=== PATIENT | female | born 1990 | race Caucasian/White ===

== ENCOUNTER 2016-05-13 15:51 | Emergency (ER) | payer BC ==
[~2016-05-13] VITALS: Ht 175.3 cm; Wt 81.4 kg
[2016-05-13 15:56] VITALS: TEMP 36.8; Ht 175.3 cm; Wt 81.4 kg
[2016-05-13] MEDS ORDERED: PRENTAB26 PO (17:14)
[2016-05-13 17:18] LABS: URINE APPEARANCE CLEAR (CLEAR); URINE BILIRUBIN NEG (NEG); URINE COLOR YELLOW; URINE EPITHELIAL CELL AUTO 0-5 /lpf (0-5); URINE NITRITE NEG (NEG); UROBILINOGEN NEG (NEG)
[2016-05-13 17:19] LABS: MANUAL MICROSCOPIC REQUIRED? NO; REVIEW REQ? NO
[2016-05-13 17:21] LABS: BASO % 0.4 %; BASO ABS # 0.03 K/uL (0-0.2); COMPLETE YES; EOS % 1.7 %; HEMATOCRIT 41.2 % (37-47); IG% 0.1 %; LYMPH % 36.7 %; LYMPH ABS # 2.78 K/uL (1.2-3.4); MEAN CELL VOLUME 89.4 fL (80-100); MEAN CORPUSCULAR HEMOGLOBIN 30.2 pg (25-34); MEAN CORPUSCULAR HGB CONC 33.7 g/dl (32-36); MEAN PLATELET VOLUME 9.8 fL (7.4-10.4); MONO % 6.1 %; PLATELET COUNT 298 K/uL (130-400); RED BLOOD COUNT 4.61 M/uL (4.2-5.4); WHITE BLOOD COUNT 7.57 K/uL (4.8-10.8)
--- NOTE | 2016-05-13 17:22 | DIAGNOSTIC IMAGING REPORT ---
Limited ultrasound <14 WKS SINGLE CLINICAL HISTORY: bleeding crampy TECHNIQUE: Ultrasound COMPARISON STUDY: None FINDINGS: Midline uterus with a greatest dimension of 8 cm. No evidence for an intrauterine gestational sac. Mild endometrial prominence at 7 mm. Right ovary measures 3 cm maximum dimension containing a 1.1 cm cyst. Left ovary measures 3.6 cm. Vascular flow is confirmed to both ovaries. IMPRESSION: No evidence for an intrauterine gestational sac. Small right ovarian cyst. Electronically signed by: Miky Menezes M.D. 05/13/2016 5:20 PM Dictated Date/Time: 05/13/2016 5:19 PM
[2016-05-13 17:29] LABS: PARTIAL THROMBOPLASTIN RATIO 1.1; PROTHROMBIN TIME (PATIENT) 10.4 SECONDS (9.0-12.0)
[2016-05-13 17:42] LABS: BUN/CREATININE RATIO 15.3 (10-20); CALCIUM 8.9 mg/dl (8.5-10.1); CREATININE 0.74 mg/dl (0.60-1.20); POTASSIUM 3.7 mmol/L (3.5-5.1)
[2016-05-13 17:45] LABS: ALB/GLOB RATIO 1.2 (0.9-2)
[2016-05-13 18:17] VITALS: BP 101/77; PULSE 65; O2SAT 100
--- NOTE | 2016-05-13 18:26 | EMERGENCY ROOM VISIT NOTE ---
History Report prepared by Silvia: Rosie Marlow Under the Supervision of: Dr. Jax Fan D.O. First contact with patient: 16:00 Chief Complaint: ED VAG BLEEDING Stated Complaint: 2 POSITIVE PREG TEST, CRAMPING BLEEDING NOW NEG History of Present Illness The patient is a 26 year old female who presents to the Emergency Room with complaints of constant vaginal bleeding that started this morning. The patient is also experiencing lower abdominal cramping. The patient states that her last normal menstrual period was on April 13. She took two tests prior to today and both of them were positive. However, she took another urine test today after the vaginal bleeding and abdominal cramping started and it was negative. The patient went to the [facility] walk-in clinic and they recommended that she come into the ED for further evaluation and an ultrasound. They did not do anything for her there, they did not even do a test. This would be the patient's first . The patient experienced nausea over the past two days, but she is not experiencing any today. She denies shortness of breath, back pain, vomiting, and lower extremity edema. The patient denies any significant medical problems and states that the only surgery she has experienced is a wisdom teeth extraction. Source of History: patient Onset: this morning Position: other (vagina) Quality: other (vaginal bleeding) Timing: constant Associated Symptoms: + abdominal pain (cramping), + nausea, No SOB, No back pain, No vomiting Note: no lower extremity edema Review of Systems See HPI for pertinent positives & negatives. A total of 10 systems reviewed and were otherwise negative. Past Medical & Surgical Surgical Problems: (1) History of wisdom tooth extraction Social History Smoking Status: Never Smoker Marital Status: Housing Status: lives with family Occupation Status: employed Current/Historical Medications Scheduled Multivit/Min/Iron/Fol Ac/Pren ( Vitamin), 1 TAB PO DAILY Allergies Coded Allergies: No Known Allergies (Unverified , 05/13/16) Physical Exam Vital Signs Date Time Temp Pulse Resp B/P Pulse Ox O2 Delivery O2 Flow Rate FiO2 05/13/16 18:17 65 16 101/77 100 05/13/16 17:23 65 16 115/73 100 Room Air 05/13/16 15:56 36.8 71 18 137/69 100 Room Air Physical Exam GENERAL: Patient is awake, alert, and in no acute distress. Patient is resting comfortably and showing no signs of anxiety EYES: The conjunctivae are clear. The pupils are round and reactive. EARS, NOSE, MOUTH AND THROAT: The nose is without any evidence of any deformity. Mucous membranes are moist tongue is midline NECK: The neck is nontender and supple. RESPIRATORY: Normal respiratory effort is noted there is no evidence of wheezing rhonchi or rales CARDIOVASCULAR: Regular rate and rhythm noted there no murmurs rubs or gallops normal S1 normal S2 GASTROINTESTINAL: The abdomen is soft. Bowel sounds are present in all quadrants. Abdomen is nontender MUSCULOSKELETAL/EXTREMITIES: There is no evidence of gross deformity full range of motion is noted in the hips and shoulders SKIN: There is no obvious evidence of any rash. There are no petechiae, pallor or cyanosis noted. NEUROLOGIC: Patient is awake alert and oriented x3 strength is symmetric patellar reflexes are 2+ bilaterally Medical Decision & Procedures ER Provider Diagnostic Interpretation: US results as stated below per my review and radiologist interpretation. Limited ultrasound <14 WKS SINGLE IMPRESSION: No evidence for an intrauterine gestational sac. Small right ovarian cyst. Electronically signed by: Miky Menezes M.D. 05/13/2016 5:20 PM Dictated Date/Time: 05/13/2016 5:19 PM Laboratory Results 05/13/16 17:10 Red Blood Count 4.61, Mean Corpuscular Volume 89.4, Mean Corpuscular Hemoglobin 30.2, Mean Corpuscular Hemoglobin Concent 33.7, Mean Platelet Volume 9.8, Neutrophils (%) (Auto) 55.0, Lymphocytes (%) (Auto) 36.7, Monocytes (%) (Auto) 6.1, Eosinophils (%) (Auto) 1.7, Basophils (%) (Auto) 0.4, Neutrophils # (Auto) 4.16, Lymphocytes # (Auto) 2.78, Monocytes # (Auto) 0.46, Eosinophils # (Auto) 0.13, Basophils # (Auto) 0.03 05/13/16 17:10 Test 05/13/16 17:03 05/13/16 17:10 Urine Color YELLOW Urine Appearance CLEAR (CLEAR) Urine pH 6.0 (4.5-7.5) Urine Specific [place] 1.010 (1.000-1.030) Urine Protein NEG (NEG) Urine Glucose (UA) NEG (NEG) Urine Ketones NEG (NEG) Urine Occult Blood TRACE (NEG) Urine Nitrite NEG (NEG) Urine Bilirubin NEG (NEG) Urine Urobilinogen NEG (NEG) Urine Leukocyte Esterase NEG (NEG) Urine WBC (Auto) 0 /hpf (0-5) Urine RBC (Auto) 0-4 /hpf (0-4) Urine Hyaline Casts (Auto) 0 /lpf (0-5) Urine Epithelial Cells (Auto) 0-5 /lpf (0-5) Urine Bacteria (Auto) NEG (NEG) White Blood Count 7.57 K/uL (4.8-10.8) Red Blood Count 4.61 M/uL (4.2-5.4) Hemoglobin 13.9 g/dL (12.0-16.0) Hematocrit 41.2 % (37-47) Mean Corpuscular Volume 89.4 fL (80-100) Mean Corpuscular Hemoglobin 30.2 pg (25-34) Mean Corpuscular Hemoglobin Concent 33.7 g/dl (32-36) Platelet Count 298 K/uL (130-400) Mean Platelet Volume 9.8 fL (7.4-10.4) Neutrophils (%) (Auto) 55.0 % Lymphocytes (%) (Auto) 36.7 % Monocytes (%) (Auto) 6.1 % Eosinophils (%) (Auto) 1.7 % Basophils (%) (Auto) 0.4 % Neutrophils # (Auto) 4.16 K/uL (1.4-6.5) Lymphocytes # (Auto) 2.78 K/uL (1.2-3.4) Monocytes # (Auto) 0.46 K/uL (0.11-0.59) Eosinophils # (Auto) 0.13 K/uL (0-0.5) Basophils # (Auto) 0.03 K/uL (0-0.2) RDW Standard Deviation 41.4 fL (36.4-46.3) RDW Coefficient of Variation 12.7 % (11.5-14.5) Immature Granulocyte % (Auto) 0.1 % Immature Granulocyte # (Auto) 0.01 K/uL (0.00-0.02) Prothrombin Time 10.4 SECONDS (9.0-12.0) Prothromb Time International Ratio 1.0 (0.9-1.1) Activated Partial Thromboplast Time 28.9 SECONDS (21.0-31.0) Partial Thromboplastin Ratio 1.1 Anion Gap 9.0 mmol/L (3-11) Est Creatinine Clear Calc Drug Dose 129.2 ml/min Estimated GFR () 127.8 Estimated GFR (Non- 110.3 BUN/Creatinine Ratio 15.3 (10-20) Calcium Level 8.9 mg/dl (8.5-10.1) Total Bilirubin 0.3 mg/dl (0.2-1) Aspartate Amino Transf (AST/SGOT) 12 U/L (15-37) Alanine Aminotransferase (ALT/SGPT) 17 U/L (12-78) Alkaline Phosphatase 55 U/L (45-117) Total Protein 7.6 gm/dl (6.4-8.2) Albumin 4.1 gm/dl (3.4-5.0) Globulin 3.5 gm/dl (2.5-4.0) Albumin/Globulin Ratio 1.2 (0.9-2) Human Chorionic Gonadotropin, Quant 3 mIU/mL Laboratory results per my review. Procedure Bedside ultrasound obtained in the ED revealed endometrial striped widened but no definite products of conception were noted. ED Course 1602: The patient was evaluated in room A9. A complete history and physical examination were performed. 1606: I performed a bedside ultrasound at this time. Refer to the procedure note above for further details. 1755: Upon reevaluation, the patient is doing well. She told me that the vaginal bleeding is essentially gone now. I discussed the results and treatment plan with her. She verbalized agreement of the treatment plan. She was discharged home. Medical Decision Prior records/ancillary studies reviewed. Triage Nursing notes reviewed. The patient's history was concerning for vaginal bleeding and abdominal pain. Differential diagnosis: Etiologies such as ectopic , dysfunction uterine bleeding, bleeding dyscrasia, trauma, infection, as well as others were entertained. The patient is a 26-year-old female who presented to emergency department for an evaluation of vaginal bleeding. The patient a pelvic cramping. She took a test last week which was positive. She took a test today that was negative. She will see her primary care physician and was sent to the emergency department for possible ectopic . The patient's physical exam was not consistent with an acute surgical abdomen. Her beta hCG quantitative was very low and I feel it is probably coming down from a missed AB. I discussed patient's laboratory and radiographic studies with her. She was encouraged to rest and avoid any strenuous activity. She was also encouraged to continue all medications as prescribed. She was also encouraged to call her primary care physician to schedule a follow-up appointment or return to emergency apartment immediately if symptoms change worsen or the need arises. The patient does have a follow-up appointment with her primary DIRECTOR OF STRATEGY & MOBILE physician upcoming. She was encouraged to have a repeat beta hCG quantitative done at that time. Impression Primary Impression: Vaginal bleeding Additional Impression: Missed Scribe Attestation The scribe's documentation has been prepared under my direction and personally reviewed by me in its entirety. I confirm that the note above accurately reflects all work, treatment, procedures, and medical decision making performed by me. Departure Information Dispostion Home / Self-Care Forms HOME CARE DOCUMENTATION FORM, IMPORTANT VISIT INFORMATION, WORK / SCHOOL INSTRUCTIONS Patient Instructions ED Miscarriage Poss, [facility] Additional Instructions Follow-up with your DIRECTOR OF STRATEGY & MOBILE physician this week as scheduled. I would recommend a repeat beta hCG quantitative to be sure that the number comes down to 0. Rest and avoid any strenuous activity. Return to the emergency department immediately if symptoms change worsen or the need arises. Follow-up with a local DIRECTOR OF STRATEGY & MOBILE physician as soon as possible. Problem Qualifiers
== END 2016-05-13 18:18 | disposition home or self-care (01) ==
LOC: C.EDB 15:54 → C.EDA 18:18
DX: O02.1 Missed abortion (principal)

== ENCOUNTER → 2016-07-31 | Outpatient (CLI) | payer BC ==
[~2016-07-31] MED LIST: PRENTAB26 PO
== END | disposition home or self-care (01) ==
LOC: C.LAB1850 16:26
PROVIDERS: ATTEND Obstetrics & Gynecology
DX: O09.299 Supervision of pregnancy with other poor reproductive or obstetric history, unspecified trimester (principal)

== ENCOUNTER → 2016-08-28 | Outpatient (CLI) | payer BC, OTHER ==
[2016-08-28 13:20] LABS: BASO % 0.3 %; BASO ABS # 0.02 K/uL (0-0.2); COMPLETE YES; EOS % 0.8 %; HEMATOCRIT 41.3 % (37-47); IG% 0.1 %; LYMPH % 29.3 %; LYMPH ABS # 2.28 K/uL (1.2-3.4); MEAN CELL VOLUME 90.4 fL (80-100); MEAN CORPUSCULAR HEMOGLOBIN 30.2 pg (25-34); MEAN CORPUSCULAR HGB CONC 33.4 g/dl (32-36); MEAN PLATELET VOLUME 9.9 fL (7.4-10.4); MONO % 5.9 %; NEUT % 63.6 %; PLATELET COUNT 298 K/uL (130-400); RED BLOOD COUNT 4.57 M/uL (4.2-5.4); WHITE BLOOD COUNT 7.78 K/uL (4.8-10.8)
[2016-08-28 15:09] LABS: URINE APPEARANCE CLEAR (CLEAR); URINE BILIRUBIN NEG (NEG); URINE COLOR YELLOW; URINE NITRITE NEG (NEG); UROBILINOGEN NEG (NEG)
[2016-08-28 15:16] LABS: MANUAL MICROSCOPIC REQUIRED? NO; REVIEW REQ? NO
[2016-08-30 15:57] LABS: QUANTIF TB AG-NIL 0.02 IU/ML; QUANTIFERON NIL 0.03 IU/ML
[2016-08-31 03:10] LABS: CHLAMYDIA TRACH RNA*** NOT DETECTED (NOT DETECTED); GC (NEIS GONORRHOEAE)RNA** NOT DETECTED (NOT DETECTED)
== END | disposition home or self-care (01) ==
LOC: C.LAB1850 12:07
PROVIDERS: ATTEND Obstetrics & Gynecology
DX: O09.299 Supervision of pregnancy with other poor reproductive or obstetric history, unspecified trimester (principal); Z20.9 Contact with and (suspected) exposure to unspecified communicable disease

== ENCOUNTER → 2016-10-24 | Outpatient (CLI) | payer BC ==
[2016-10-24 15:16] LABS: GTGD 50 Grams
[2016-10-26 14:09] LABS: AFP CONCENTRATION 50.4 NG/ML; AFP MULTIPLE OF MEDIAN 1.84; AFPTS GESTATIONAL AGE 15.7 WEEKS; AFPTS INSULIN DEP DIABETIC? NO; AFPTS MATERNAL WT 183 LBS; ALPHA-FETOPROTEIN RACE CAUCASIAN=W; HISTORY OF NTD NO; REPEAT SAMPLE? NO
== END | disposition home or self-care (01) ==
LOC: C.LAB1850 13:51
PROVIDERS: ATTEND Obstetrics & Gynecology
DX: Z34.92 Encounter for supervision of normal pregnancy, unspecified, second trimester (principal)

== ENCOUNTER → 2017-01-16 | Outpatient (CLI) | payer BC ==
[2017-01-16 16:13] LABS: URINE APPEARANCE CLEAR (CLEAR); URINE BILIRUBIN NEG (NEG); URINE COLOR YELLOW; URINE NITRITE NEG (NEG); URINE SPECIFIC GRAVITY 1.019 (1.000-1.030); UROBILINOGEN NEG (NEG)
[2017-01-16 16:24] LABS: MANUAL MICROSCOPIC REQUIRED? NO; REVIEW REQ? NO
[2017-01-16 16:38] LABS: HEMATOCRIT 36.8 % (37-47)
[2017-01-16 19:05] LABS: GTGD 50 Grams
== END | disposition home or self-care (01) ==
LOC: C.LAB1850 14:51
PROVIDERS: ATTEND Obstetrics & Gynecology
DX: Z34.93 Encounter for supervision of normal pregnancy, unspecified, third trimester (principal)

== ENCOUNTER → 2017-03-19 | Outpatient (CLI) | payer BC | END | disposition home or self-care (01) | LOC: C.LABSPEC 17:33 | PROVIDERS: ATTEND Obstetrics & Gynecology | DX: Z34.03 Encounter for supervision of normal first pregnancy, third trimester (principal) ==

== ENCOUNTER 2017-04-15 10:48 | Inpatient (IN) | payer BC ==
[~2017-04-15] VITALS: Ht 175.3 cm; Wt 100.0 kg
[2017-04-15] MEDS ORDERED: LACTATED RINGER'S 1000ML 500 ML IV PRN ×2 (11:32→13:10)
[2017-04-15] MEDS ORDERED: LACTATED RINGER'S 1000ML 1,000 ML IV PRN (11:32)
[2017-04-15] MEDS: LACTATED RINGER'S 1000ML 1,000 ML IV SCH ×3 (11:42→17:35)
[2017-04-15] MEDS ORDERED: OXYTOCIN 30 UNITS/500ML NSS IV PRN ×2 (11:45→20:15)
[2017-04-15] MEDS ORDERED: BUPIVACAINE 0.25% 30 ML VIAL ONE (11:48)
[2017-04-15] MEDS ORDERED: EpHEDrine SULFATE INJ 50 MG/ML AMP ONE (11:48)
[2017-04-15] MEDS ORDERED: FENTANYL CITRATE INJ 50 MCG/1 ML 2 ML VIAL ONE (11:48)
[2017-04-15] MEDS ORDERED: FENTANYL 2MCG/ML ROPIV 1.25MG/ML 100ML BAG EPI ONE (11:49)
[2017-04-15 12:08] LABS: HEMATOCRIT 38.9 % (37-47); MEAN CELL VOLUME 89.2 fL (80-100); MEAN CORPUSCULAR HEMOGLOBIN 29.8 pg (25-34); MEAN CORPUSCULAR HGB CONC 33.4 g/dl (32-36); MEAN PLATELET VOLUME 10.7 fL (7.4-10.4); PLATELET COUNT 221 K/uL (130-400); RED CELL DISTRIBUTION WIDTH CV 13.3 % (11.5-14.5); RED CELL DISTRIBUTION WIDTH SD 43.2 fL (36.4-46.3); WHITE BLOOD COUNT 14.31 K/uL (4.8-10.8)
[2017-04-15] MEDS ORDERED: NALOXONE HCL INJ 1 MG in SODIUM CHLORIDE 0.9% 1000ML 1,000 ML IV PRN (13:10)
[2017-04-15] MEDS ORDERED: ONDANSETRON INJ 2 MG/ML 2 ML VIAL IV PRN (13:15)
[2017-04-15] MEDS ORDERED: NALBUPHINE HCL INJ 10 MG/ML AMP IV PRN (13:15)
[2017-04-15] MEDS ORDERED: NALOXONE HCL INJ 0.4 MG/1 ML VIAL/CARP IV PRN (13:15)
[2017-04-15] MEDS ORDERED: EpHEDrine SULFATE INJ 50 MG/ML AMP IV PRN (13:15)
[2017-04-15] MEDS ORDERED: FENTANYL 2MCG/ML ROPIV 1.25MG/ML 100ML BAG EPI PRN (13:15)
[2017-04-15] MEDS ORDERED: DiphenhydrAMINE HCL 50 MG/ML VIAL IV PRN (13:15)
[2017-04-15 14:09] VITALS: Ht 175.3 cm; Wt 100.0 kg
[2017-04-15] MEDS ORDERED: HYDROCORTISONE ACETATE 25 MG SUPP PR PRN (20:15)
[2017-04-15] MEDS ORDERED: SUPERCREAM 0.870 % 15GM JAR EXT PRN (20:15)
[2017-04-15] MEDS ORDERED: DIPHTHERIA/TETANUS/PERTUSSIS 0.5 ML SYR/VIAL IM. ONE (20:15)
[2017-04-15] MEDS ORDERED: OXYCODONE/ACETAMINOPHEN 5-325 TAB PO PRN (20:15)
[2017-04-15] MEDS ORDERED: LANOLIN OINT EXT PRN (20:15)
[2017-04-15] MEDS ORDERED: BENZOCAINE 20% AER SPR 82.5 GM CAN EXT PRN (20:15)
[2017-04-15] MEDS ORDERED: ACETAMINOPHEN 325 MG TAB PO PRN (20:15)
--- NOTE | 2017-04-15 20:27 | DELIVERY SUMMARY ---
DATE OF OPERATION: 04/15/2017 PREOPERATIVE DIAGNOSES: 1. Cheng intrauterine at 40-3/7 weeks. 2. Onset of labor. 3. Group B strep negative. POSTOPERATIVE DIAGNOSES: Same. PROCEDURE: Spontaneous vaginal delivery. SURGEON: Cara John MD. WIG MAKER: None. ESTIMATED BLOOD LOSS: 250. COMPLICATIONS: None. DISPOSITION: Stable to labor and delivery. DESCRIPTION: Zo is a G2, P0-0-1-0 who presented in active labor at 40 weeks and 3 days. She was provided with an epidural for pain management and ultimately Pitocin for augmentation. She received complete dilatation with an urge to push and was coached through her second stage of labor. I was called to the bedside for delivery. I prepped, gowned, washed the perineum with soap and water and through the next several pushes, the patient delivered her infant's head in the direct occiput anterior position. The infant restituted such that its right shoulder was anterior. Through the next push, the mother delivered the shoulders with no difficulty followed by the reminder of a vigorous male infant. The infant was placed on the maternal abdomen. At the parents wishes, delayed cord clamping was undertaken. The cord was doubly clamped and cut by the father of the baby 2 minutes after delivery. The placenta then delivered spontaneously and was noted to be intact with a 3-vessel cord. Although there was significant labial swelling and some abrasion at the posterior fourchette, this was hemostatic and there were no areas requiring suture. At the present time, the fundus is firm, lochia is minimal and mother and infant are both in good condition, having tolerated delivery well. I attest to the content of the Intraoperative Record and any orders documented therein. Any exception s are noted below.
--- NOTE | 2017-04-15 20:28 | Anesthesia Procedure Note ---
Anesthesia Epidural Removal Nt Date & Time Apr 15, 2017 at 20:28 Vital Signs Pain Intensity: 0.0 Notes Mental Status: alert / awake / arousable, participated in evaluation Nausea / Vomiting: adequately controlled Pain: adequately controlled Airway Patency, RR, SpO2: stable & adequate BP & HR: stable & adequate Hydration State: stable & adequate Neuraxial Anesthesia: was administered, sensory block is resolving Anesthetic Complications: no major complications apparent, pt satisfied with anesthetic care Epidural: removed without complications, with tip intact
[2017-04-15] MEDS ORDERED: LACTATED RINGER'S 1000ML 1,000 ML IV SCH (20:30)
[2017-04-16] VITALS (8 sets, daily range): BP systolic 114–125; BP diastolic 69–83; PULSE 56–75; TEMP 36.7–37.2; O2SAT 97–98
--- NOTE | 2017-04-16 06:06 | Progress Note ---
Subjective Apr 16, 2017. Subjective conversation w/ patient (Patient seen and examined at bedside) Ambulation: ambulating normally Voiding: no voiding problems Diet Tolerance: Regular Diet Lochia: Moderate Feeding Type: Breast Feeding Pain: No pain reported Review of Systems Constitutional: No fever, No chills, No sweats Respiratory: No shortness of breath Cardiac: No chest pain Abdomen: No pain, No nausea, No vomiting Female : No dysuria Objective Vital Signs Date Time Temp Pulse Resp B/P (MAP) Pulse Ox O2 Delivery O2 Flow Rate FiO2 04/16/17 04:45 37.0 69 18 119/69 (86) Room Air 04/16/17 00:50 Room Air 04/16/17 00:50 37.2 56 18 121/74 (90) Room Air Physical Exam General Appearance: WELL-APPEARING, WD/WN, NO APPARENT DISTRESS Respiratory/Chest: chest non-tender, lungs clear, normal breath sounds, no respiratory distress, no accessory muscle use Cardiovascular: regular rate, rhythm, no edema, no gallop, no murmur Abdomen: normal bowel sounds, non tender, soft Fundus: Firm, Non-Tender, Relation to Umbilicus (at u) Extremities: normal inspection, no pedal edema, no calf tenderness Laboratory Results Last 24 Hours Test 04/15/17 11:45 04/16/17 06:00 White Blood Count 14.31 K/uL Red Blood Count 4.36 M/uL Hemoglobin 13.0 g/dL Hematocrit 38.9 % Mean Corpuscular Volume 89.2 fL Mean Corpuscular Hemoglobin 29.8 pg Mean Corpuscular Hemoglobin Concent 33.4 g/dl RDW Standard Deviation 43.2 fL RDW Coefficient of Variation 13.3 % Platelet Count 221 K/uL Mean Platelet Volume 10.7 fL Medications Current Inpatient Medications Medications (Trade) Dose Ordered Sig/Ramesh Route Start Time Stop Time Status Last Admin Dose Admin Lactated Ringer's 1,000 ml @ 125 mls/hr Q8H IV 04/15/17 11:32 04/17/17 11:31 04/15/17 17:35 125 MLS/HR Lactated Ringer's 1,000 ml @ 999 mls/hr Q1H1M PRN IV 04/15/17 11:32 05/15/17 11:31 Oxytocin (Pitocin IV) 30 units UD PRN IV 04/15/17 11:45 05/15/17 11:44 04/15/17 18:27 30 UNITS Lactated Ringer's 500 ml @ 999 mls/hr Q31M PRN IV 04/15/17 11:32 05/15/17 11:31 Lactated Ringer's 1,000 ml @ 125 mls/hr Q8H IV 04/15/17 20:30 05/15/17 20:29 Oxytocin (Pitocin IV) 30 units UD PRN IV 04/15/17 20:15 05/15/17 20:14 Benzocaine (Dermoplast Aero Spr) 1 appln PRN PRN EXT 04/15/17 20:15 05/15/17 20:14 Cocaine HCl (Supercream 0.870% Cr) BID PRN EXT 04/15/17 20:15 04/29/17 20:14 Hydrocortisone Acetate (Anusol Hc Supp) 25 mg BID PRN GA 04/15/17 20:15 05/15/17 20:14 Lanolin (Lanolin Oint) PRN PRN EXT 04/15/17 20:15 05/15/17 20:14 Prenat Multivit/ [place]/Iron/Folic Ac ( Vitamin Tab) 1 tab DAILY PO 04/16/17 08:00 05/16/17 07:59 Ibuprofen (Motrin Tab) 600 mg Q4H PRN PO 04/15/17 20:15 05/15/17 20:14 Acetaminophen (Tylenol Tab) 650 mg Q6H PRN PO 04/15/17 20:15 05/15/17 20:14 Oxycodone/ Acetaminophen (Percocet 5-325mg Tab) 1 tab Q4H PRN PO 04/15/17 20:15 04/29/17 20:14 Docusate Sodium (coLACE CAP) 100 mg BID PO 04/16/17 08:00 05/16/17 07:59 Assessment and Plan Problem List Medical Problems: (1) Missed Status: Acute (2) Vaginal bleeding Status: Acute Post- Day#: 1 Continue Routine Care: 27 year old s/p NVD day 1. - O+, rubella immune, GBS negative - pt doing very well clinically - continue routine care - encourage ambulation and , monitor lochia , analgesia prn - vitals reviewed and wnl - Hgb stable - 13 yesterday, 11 today Matilda Hess, PGY1 Resident Physician Supervision Note: I interviewed and examined the patient. Discussed with [Name of resident] and agree with findings and plan as documented in the note. Any exceptions or clarifications are listed here: [None] Documented By: Cara John Resident Tracking Resident Involvement: Resident Care Provided Care Provided: OB Delivery
--- NOTE | 2017-04-16 06:07 | Discharge Instructions ---
Discharge Instructions Date of Service Apr 16, 2017. Admission Reason for Admission: Check Labor Discharge Discharge Diagnosis / Problem: Vaginal Delivery Discharge Goals Goal(s): Routine recovery after delivery Medications Continue Dispensed Medications: supercream, dermaplast, tucks, lansinoh Activity Recommendations Activity Limitations: per Instructions/Follow-up section . Instructions / Follow-Up Instructions / Follow-Up ACTIVITY RECOMMENDATIONS: * Gradual return to full activity over the next 2-3 weeks. * No lifting - nothing heavier than baby over the next 2-3 weeks. * Do not engage in vigorous exercise, sexual activity or sports until cleared by your physician. * Do not drive or operate any motorized equipment until cleared by your physician. * You may shower/bathe daily. MEDICATIONS: For discomfort or pain, you may use Acetaminophen (Tylenol), Ibuprofen (Advil), or Naproxen (Aleve) following the package directions. For constipation you may use Colace following the package directions. BREAST CARE: If you are not breast feeding: * Wear a supportive bra 24 hours a day for one to two weeks. * Avoid stimulating your breasts and nipples as much as possible during the first few weeks after delivery. * When taking a shower, have the warm water hit your back, not breasts. * When your breasts feel full, apply ice packs. Usually three to four times a day helps ease the discomfort. * Take a mild pain medication (Tylenol / Motrin) when you are uncomfortable. If breast feeding: * Use breast milk to lubricate nipples. Lansinoh cream may be used for sore nipples. You do not need to remove cream prior to breast feeding. If using a different brand of cream, check the label for directions regarding removal of cream prior to nursing. * Wear a supportive bra. * If having problems with breasts or breast feeding, call a senior sales consultant or your health care provider. EPISIOTOMY CARE: After delivery, if you have an episiotomy (stitches), the following steps will ease discomfort and aid healing. * For the first 24 hours after delivery, place ice packs next to your episiotomy to help reduce swelling. * After the first 24 hour-period, sitz baths, either portable or in the tub, are suggested. A shower with a shower arm sprayed over the episiotomy may be comforting. * Evelyn care should be done after each voiding and bowel movement. Squirt warm water from a plastic bottle over the perineum (region of the body between the anus and urinary opening) and pat dry. * Use Dermoplast to ease discomfort. Shake container. Novelty directly over the episiotomy. Place a Tucks on a clean sanitary pad next to your episiotomy. SPECIAL CARE INSTRUCTIONS: When you are discharged from the hospital, it is important for you to follow the instructions listed below: * During the first week at home, you should be able to care for yourself and your baby. In addition, the usual light household activities are encouraged. * Limit your activities to the way you feel. Do not try to clean the house or move furniture. Be sensible. * If you actively engage in sports and have done so up until the time of your delivery, you may resume these activities as soon as you feel able. This may take up to one month or even longer. Use good judgment. * Continue to take your vitamins for at least six weeks after the of your baby. * Your diet need not be limited unless you were on a special diet before your delivery. Breast-feeding mothers need around 2500 calories per day and at least 64-80 ounces of fluid per day (8 to 10 glasses). * You should eat foods from the four major food groups. Crash diets or fad diets are to be avoided. Eating lean meats, fresh fruits and vegetables, low-fat dairy products, high fiber foods and a regular exercise program, will help you get back to your pre- weight without putting your health at risk. * Constipation is sometimes a problem after delivery. Take a mild laxative as needed. If breast feeding, Milk of Magnesia is acceptable to use. You may use a suppository or Fleets enema if no episiotomy. * A daily shower or tub bath is suggested. Be sure to thoroughly and gently dry the perineum. * A bloody vaginal discharge will usually continue until around four weeks post . A small amount of bleeding may continue for as long as six weeks. Vaginal discharge changes from the bright red bleeding after delivery to pink then brownish and finally yellowish-pink before becoming white and disappearing. * Bleeding may increase with activity. Your first period may come in 4-8 weeks. If you are breast feeding, your period may be delayed even longer. * [place] (sex) can begin whenever both you and your partner feel comfortable and do not have any form of genital infection. It is recommended that you wait at least six weeks for internal and external healing to occur. If you have questions, please talk to your health care practitioner. A condom should be used to prevent infection and . * Foreplay, gentle intercourse and lubrication is very important the first several times to prevent pain. A water-based lubricant such as K-Y jelly or Astroglide may be used. * If you have RH negative blood and your baby is RH positive, you will receive RHOGAM by injection prior to discharge. The nurse will give you a card to keep with you that has the date and place that you received RHOGAM after delivery. * During your care, you had a Rubella screen done to check for the presence of rubella antibodies in your blood. If your test was negative, you will receive a Rubella vaccine prior to discharge. This vaccine may cause a fever, soreness at the injection site and flu-like symptoms. If these symptoms persist, notify your health care practitioner. is not advised for one month after a Rubella vaccine. * Verbalizes understanding of car seat law as reviewed with patient nursing. * Car Seat hand-out given and reviewed with patient by nursing. * Shaken baby information reviewed with patient by nursing. Call you doctor if: * Heavy bleeding (saturating several pads an hour) or passing clots the size of your fist. * A fever >101 degrees F (38.3 degrees C) on two occasions four hours apart and /or chills. * Unusual pain in the pelvic or vaginal areas. * "Baby Blues" lasting longer than two weeks. If you have any questions or concerns, call your health care practitioner at . FOLLOW UP VISIT: * Please call the office at to schedule a 6 week examination. It is important you keep this appointment. It is important for you to make arrangements for either yearly or twice yearly check-ups thereafter. Current Hospital Diet Patient's current hospital diet: Regular OB Diet Discharge Diet Recommended Diet: Regular Diet Pending Studies Studies pending at discharge: no Medical Emergencies . Who to Call and When: Medical Emergencies: If at any time you feel your situation is an emergency, please call 911 immediately. . Non-Emergent Contact Non-Emergency issues call your: Primary Care Provider . . "Provider Documentation" section prepared by Matilda Hess. . VTE Core Measure Inpt VTE Proph given/why not?: Treatment not indicated
[2017-04-16 06:18] LABS: HEMATOCRIT 33.6 % (37-47)
[2017-04-16] MEDS: PRENATAL VITAMIN TAB PO SCH (08:13)
[2017-04-16] MEDS: DOCUSATE SODIUM 100 MG CAP PO SCH ×2 (08:13→20:12)
[2017-04-16] MEDS: IBUPROFEN 600 MG TAB PO PRN ×3 (08:14→23:23)
--- NOTE | 2017-04-17 06:40 | Progress Note ---
Subjective Apr 17, 2017. Subjective conversation w/ patient, physical exam, lab review Ambulation: ambulating normally Voiding: no voiding problems Passing Gas: Yes Diet Tolerance: Regular Diet Lochia: Moderate Objective Vital Signs Date Time Temp Pulse Resp B/P (MAP) Pulse Ox O2 Delivery O2 Flow Rate FiO2 04/16/17 23:25 Room Air 04/16/17 23:25 36.8 75 18 114/75 (88) Room Air 04/16/17 16:40 36.7 68 18 125/83 (97) Room Air 04/16/17 16:40 Room Air 04/16/17 11:11 97 Room Air 04/16/17 11:08 36.8 75 20 119/81 (94) 97 Room Air 04/16/17 11:00 36.8 75 20 119/81 (94) 97 Room Air 04/16/17 07:17 37.0 70 16 120/70 (87) 98 Room Air 04/16/17 07:17 Room Air Physical Exam General Appearance: WELL-APPEARING Respiratory/Chest: lungs clear Abdomen: non tender Fundus: Firm Extremities: no calf tenderness Assessment and Plan Problem List Medical Problems: (1) Missed Status: Acute (2) Vaginal bleeding Status: Acute Post- Day#: 2 Continue Routine Care: day #2 meets discharge criteria we'll discharge later in the day as baby need circumcised
[2017-04-17 07:20] VITALS: BP 118/70; PULSE 78; TEMP 37.2; O2SAT 98
[2017-04-17] MEDS: PRENATAL VITAMIN TAB PO SCH (08:12)
[2017-04-17] MEDS: DOCUSATE SODIUM 100 MG CAP PO SCH (08:12)
[2017-04-17] MEDS: IBUPROFEN 600 MG TAB PO PRN ×2 (08:13→14:38)
[2017-04-17 16:00] VITALS: BP 131/76; PULSE 75; TEMP 36.7
[2017-04-17 18:07] VITALS: BP_DIAS 76; PULSE 75; TEMP 36.7
== END 2017-04-17 18:20 | disposition home or self-care (01) | DRG 775 ==
LOC: C.OPB 10:48 → C.LD 10:49 → C.OPB 11:36 → C.LD 12:03 → C.OBG 22:54
PROVIDERS: ADMIT Obstetrics & Gynecology; ATTEND Obstetrics & Gynecology
PROC: 10E0XZZ Delivery of Products of Conception, External Approach (ICD-10-PCS; principal; 2017-04-15)
DX: O80 Encounter for full-term uncomplicated delivery (principal); Z3A.40 40 weeks gestation of pregnancy; Z37.0 Single live birth

== ENCOUNTER 2019-11-04 07:05 | Inpatient (IN) ==
[2019-11-04] MEDS ORDERED: CEFAZOLIN 1000MG 1,000 MG/7.5 ML SYR IV PRN (07:34)
[2019-11-04] MEDS ORDERED: OXYTOCIN 30 UNITS/500 ML BAG IV PRN ×2 (07:34→09:22)
[2019-11-04] MEDS ORDERED: LACTATED RINGER'S 1,000 ML IV PRN (07:35)
[2019-11-04] MEDS ORDERED: CEFAZOLIN 2000MG 2,000 MG/15 ML SYR IV STA (07:37)
--- NOTE | 2019-11-04 08:04 | Anesthesiology Consultation ---
Date of Service November 04, 2019 Assessment & Plan Chart Review Chart Review: Acceptable Risk for Surgery, Patient NOT seen in Pre Admission Testing and Acceptable Risk for Labor Epidural Consults Requested none ASA ASA2 Proposed Anesthesia Anesthesia Type: Labor Epidural and CSE History Height/Weight Height: 5 ft 8 in Weight: 97.522 kg Allergies Allergy/AdvReac Type Severity Reaction Status Date / Time Penicillins Allergy Intermediate Rash, Verified 11/02/19 11:19 hives, itching Medications Home Medications Medication Instructions Recorded Confirmed Last Taken prenat.vits,alexander,[id number] 1 tab PO DAILY 01/31/19 11/04/19 11/03/19 Past Medical History Medical History Chicken pox Hx of migraines Exercise / Class Metabolic Activity II 4-5 Yardwork/Stairs/Walk up hill Past Family History Family History Brother Diabetes Down's syndrome Melina's thyroiditis Mother Melina's thyroiditis Grandfather (Paternal) Lung cancer Aunt Breast cancer Past Surgical History Surgical History H/O oral surgery History of wisdom tooth extraction Past Anesthesia History No Hx of Anesthesia Complications and No Family Hx of Anesthesia Complications History of PONV No Hx of PONV and No Hx of Motion Sickness Social History Smoking Status: Never smoker Hx Alcohol Use: No Hx Substance Use: No Physical Exam Vital Signs Last Vital Signs Temp 36.5 C 11/04/19 07:21 Pulse 72 11/04/19 07:19 Resp 18 11/04/19 07:21 BP 133/78 11/04/19 07:19
--- NOTE | 2019-11-04 08:08 | History & Physical Report ---
Date of Service November 04, 2019 Assessment & Plan (1) : Lyn Rudolph is a 29 y/o healthy female undergoing labor. Labor, patient - benign course other than GBS+ - used epidural during prior - progressing spontaneously - external FHT reassuring, category 1 tracing - vitals and labs (CBC) reassuring. no leukocytosis. Hb 11.7 - GBS+. penicillin allergy. Ancef ordered, received 1 dose plan: epidural planned (may not place depending on labor progression). Admission and Anticipated Discharge Date Admission Date: November 04, 2019 History of Present Illness Primary Care Provider: Fatimah Thomas Lyn Rudolph is a 29 y/o female with no significant PMHx currently at 40w5d WGA with an MAXINE 10/30/19 as determined by (LMP (certain), and 10/31/19 US#1) who is here for labor, likely . She was originally scheduled to have an induction this morning for postdate, but she started having contractions at 0100 at home and arrived later in the morning near original scheduled appointment time. Her was complicated by GBS+. Denies other acute complaints. No other symptoms. + contractions; + movement; - fluid loss; + bloody show Had regular appointments with OB. 10/29/19 covid test negative. Labs: (03/31/19) Blood type: O positive Antibody screen: negative H.7L (today) Hct: 36.6L (today) WBC: 9.69 (today) Plt: 251 (today) Rubella: immune VDRL/RPR: nonreactive Gonorrhea: not detected Chlamydia: not detected HIV: neg HbSAg: neg GBS: pos Other screens: alpha fetoprotein triple screen. low risk panorama. cf/sma neg last Allergies Allergy/AdvReac Type Severity Reaction Status Date / Time Penicillins Allergy Intermediate Rash, Verified 11/02/19 11:19 hives, itching Home Medications Home Medications Medication Instructions Recorded Confirmed Type prenat.vits,alexander,uqa-seex-jvyag 1 tab PO DAILY 01/31/19 11/04/19 History Patient History Medical History Chicken pox Hx of migraines Surgical History H/O oral surgery History of wisdom tooth extraction Family History Brother Diabetes Down's syndrome Melina's thyroiditis Mother Melina's thyroiditis Grandfather (Paternal) Lung cancer Aunt Breast cancer Social History (Updated 03/30/19 @ 09:05 by Michelle Pierre) Smoking Status: Never smoker Hx Alcohol Use: No Hx Substance Use: No Preferred Language: Indonesian Communication Ability: Effective 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 Physical Exam Physical Exam: General: Alert, oriented. In pain from contractions. Cardiac: Deferred, patient laboring. will addendum Respiratory: Deferred, patient laboring. will addendum Abdomen: Gravid; See attending exam Pelvic: See attending exam Results & Data ([facility]) Vital Signs (Past 12 Hours) Vital Signs Temp Pulse Resp BP 11/04/19 07:21 36.5 C 18 11/04/19 07:19 72 133/78 Monitoring External Monitor External FHT monitoring at 0830. baseline 145-150.Category 1 tracing. Moderate variability. Accels. No decels. Supervising Physician Co-Signing Physician Notes Resident Physician Supervision Note: I interviewed and examined the patient. Discussed with Dr. Mullins and agree with findings and plan as documented in the note. Any exceptions or clarifications are listed here: Patient is a who presents at 41+ weeks in active labor. Checked by Dr. Isaac and was 6cm and intact. Progressed rapidly to c/c/+1 with urge to push. GBS positive and did get one dose of Keflex (allergy to pcn). Fetus category one. Will begin second stage. Anticipte . Documented By: Tanya Bailey MD, FACOG Resident Activity Tracking Resident Involvement: Resident Care Provided Care Provided: [facility]
[2019-11-04] MEDS ORDERED: ePHEDrine sulfate 50 MG/ML AMP ONE (08:17)
[2019-11-04] MEDS ORDERED: fentaNYL citrate 100 MCG/2 ML VIAL ONE (08:17)
[2019-11-04] MEDS ORDERED: BUPIVACAINE 0.25% 30 ML VIAL ONE (08:17)
[2019-11-04 08:18] LABS: Hematocrit (blood only) 36.6 % (37-47); Hemoglobin 11.7 g/dL (12.0-16.0); Mean Corpuscular Hemoglobin 28.1 pg (25-34); Mean Corpuscular Volume 87.8 fL (80-100); Mean Platelet Volume 10.5 fL (7.4-10.4); Platelet Count 251 K/uL (130-400); RDW Coefficient of Variation 14.1 % (11.5-14.5); RDW Standard Deviation 45.4 fL (36.4-46.3); Red Blood Count 4.17 M/uL (4.2-5.4); White Blood Count 9.69 K/uL (4.8-10.8)
[2019-11-04] MEDS ORDERED: fentaNYL 2MCG/ML ROPIV 1.25MG/ML 100 ML BAG EPI ONE (08:18)
[2019-11-04] MEDS: OXYTOCIN 30 UNITS/500 ML BAG IV PRN ×2 (08:46→09:53)
[2019-11-04] MEDS ORDERED: OXYCODONE/ACETAMINOPHEN 5mg/325mg TAB PO PRN (09:02)
[2019-11-04] MEDS ORDERED: ACETAMINOPHEN 325 MG TAB PO PRN (09:02)
[2019-11-04] MEDS ORDERED: IBUPROFEN 600 MG TAB PO ONE (09:03)
--- NOTE | 2019-11-04 09:06 | Delivery Summary ---
Vaginal Delivery Summary Date of Service November 04, 2019 Vaginal Delivery Summary Pre-operative Diagnosis: at 41 5/7 weeks active labor Post-operative Diagnosis: same Procedure: repair of periclitoral tear EBL: 350cc Anesthesia: local infiltration of lidocaine Procedure: The patient pushed for 3 contractions to deliver a viable femle infant in sara position. A loose nuchal cord x 1 was reduced easily and then the rest of the was then delivered without difficulty. The baby was vigorous. The nose and mouth were bulb suctioned and the was placed in the maternal abdomen for drying and attention. Cord was clamped and cut at one minute of life. Cord blood and segment obtained. Placenta delivered spontaneous, intact with a three vessel cord. Cervix/sulci/rectum/perineum were intact. A periclitoral laceration was repaired in the normal standard fashion. two leovon-ss-zoyuf sutures were needed to reapproximate skin edges on the posterior forchette. Hemostasis obtained with dilute pitocin and fundal massage. Apgars were 8/9. Mother and baby doing well at the end of the delivery. [facility] [place] Delivery Charge Vaginal Delivery Codes: 22501 global code for the antepartum, delivery, and post-
[2019-11-04] MEDS ORDERED: SUPERCREAM 0.870% 15 GM JAR EXT PRN (09:22)
[2019-11-04] MEDS ORDERED: HYDROCORTISONE ACETATE 25 MG SUPP PR PRN (09:22)
[2019-11-04] MEDS ORDERED: DIPHTHERIA/TETANUS/PERTUSSIS 0.5 ML SYR/VIAL IM ONE (09:22)
[2019-11-04] MEDS ORDERED: bisacodyL 10 MG SUPP PR PRN (09:22)
[2019-11-04] MEDS: BENZOCAINE 20% AER SPR 82.5 GM CAN EXT PRN (11:04)
[2019-11-04] MEDS: IBUPROFEN 600 MG TAB PO PRN ×3 (15:13→23:53)
[2019-11-04] MEDS: DOCUSATE SODIUM 100 MG CAP PO SCH (20:05)
--- NOTE | 2019-11-05 05:46 | Obstetrical Progress Note ---
Date of Service <Nate Mullins MD - Last Filed: 11/05/19 07:05> November 05, 2019 Assessment & Plan <Nate Mullins MD - Last Filed: 11/05/19 07:05> (1) state: PPD2, encourage ambulation routine care GBS pos, received only 1 dose of Ancef. peds monitoring baby for 48 hours Subjective <Nate Mullins MD - Last Filed: 11/05/19 07:05> Patient is feeling well and does not have pain. 0/10 pain. +flatus, no bm. ibuprofen x2 last night, good relief. Eating, voiding ok. mild lochia. Physical Exam <Nate Mullins MD - Last Filed: 11/05/19 07:05> General: Alert, oriented. No acute distress. Cardiac: Regular rate and rhythm, no murmurs/rubs/gallops. Respiratory: Clear to auscultation anterior and posteriorly, no wheezes/rales/rhonchi. No increased work of breathing. Symmetrical chest rise. No respiratory distress. Abdomen: normal post-, no ttp Uterus: Uterine fundus firm, palpable 4cm below umbilicus. Lower Extremities: No lower extremity edema or swelling. No deep calf pain. Niyah's negative bilaterally. Results & Data ([facility]) <Nate Mullins MD - Last Filed: 11/05/19 07:05> Vital Signs (Past 12 Hours) Vital Signs Temp Pulse Resp BP 11/05/19 03:40 36.7 C 59 L 18 106/65 11/04/19 23:50 36.8 C 59 L 18 124/78 11/04/19 20:00 36.7 C 59 L 18 117/70 <Tanya Bailey MD, FACOG - Last Filed: 11/05/19 07:23> Co-Signing Physician Notes Resident Physician Supervision Note: I interviewed and examined the patient. Discussed with Dr. Mullins and agree with findings and plan as documented in the note. Any exceptions or clarifications are listed here: Patient doing well PPD 1. Uterus was 2cm below u and nontender. Plan routine care. Will need to stay to tomorrow for baby gbs + and only one dose of antibiotics. Documented By: Tanya Bailey MD, FACOG
[2019-11-05 06:30] LABS: Hematocrit (blood only) 34.9 % (37-47); Hemoglobin 11.2 g/dL (12.0-16.0)
[2019-11-05] MEDS: DOCUSATE SODIUM 100 MG CAP PO SCH ×2 (08:33→20:58)
[2019-11-05] MEDS: IBUPROFEN 600 MG TAB PO PRN ×2 (08:33→17:18)
[2019-11-05] MEDS: PRENATAL VITAMIN 1 TAB PO SCH (08:34)
[2019-11-05] MEDS ORDERED: bisacodyL 5 MG TABEC PO SCH (20:00)
--- NOTE | 2019-11-06 06:06 | Obstetrical Progress Note ---
Date of Service <Nate Mullins MD - Last Filed: 11/06/19 07:12> November 06, 2019 Assessment & Plan <Nate Mullins MD - Last Filed: 11/06/19 07:12> (1) state: Lyn Rudolph is a 29 y/o s/p at 41+ wks. PPD3, - most recent vitals stable - doing well, - no new labs plan: encourage ambulation, routine care. dispo home GBS pos -received only 1 dose of Ancef. peds monitoring baby for 48 hours plan: dispo home today Subjective <Nate Mullins MD - Last Filed: 11/06/19 07:12> Patient is feeling great. no pain. - f/c, n/v, cp, sob, urinary sxs, calf pain. feels comfortable w/ dispo today. , eating, ambulating, voiding w/o problems. Last BM this AM. Review of Systems Denies fever, chills, sweats Denies shortness of breath, difficulty breathing, chest pain, palpitations, chest pressure. Denies breast pain. Denies dysuria. Denies headache or changes in vision. Denies nausea/vomiting. Denies numbness, tingling, weakness. Physical Exam <Nate Mullins MD - Last Filed: 11/06/19 07:12> General: Alert, oriented. No acute distress. Cardiac: Regular rate and rhythm, no murmurs/rubs/gallops. Respiratory: Clear to auscultation anterior and posteriorly, no wheezes/rales/rhonchi. No increased work of breathing. Symmetrical chest rise. No respiratory distress. Abdomen: post- Uterus: Uterine fundus firm, palpable 2-3cm below umbilicus. Lower Extremities: No lower extremity edema or swelling. No deep calf pain. Niyah's negative bilaterally. Results & Data ([facility]) <Nate Mullins MD - Last Filed: 11/06/19 07:12> Vital Signs (Past 12 Hours) Vital Signs Temp Pulse Resp BP 11/06/19 00:00 36.7 C 77 18 110/69 <Sarah Garcia MD, FACOG - Last Filed: 11/07/19 14:09> Co-Signing Physician Notes Resident Physician Supervision Note: I was present with Dr. Isaac during the history and exam. I discussed the case with the resident and agree with the findings and plan as documented in the note. Any exceptions or clarifications are listed here: [None] Documented By: Sarah Garcia MD, FACOG
[2019-11-06] MEDS: IBUPROFEN 600 MG TAB PO PRN (08:09)
[2019-11-06] MEDS: PRENATAL VITAMIN 1 TAB PO SCH (08:09)
[2019-11-06] MEDS: DOCUSATE SODIUM 100 MG CAP PO SCH (08:09)
[2019-11-06] MEDS: BENZOCAINE 20% AER SPR 82.5 GM CAN EXT PRN (12:12)
== END 2019-11-06 13:30 | disposition home or self-care (01) | DRG 807 ==
LOC: 4S1 07:05 → 4S2 11:45